=== PATIENT | male | born 1950 | race Caucasian/White ===

== ENCOUNTER → 2018-10-14 | Day surgery (SDC) | payer MEDICARE ==
[2016-06-21 18:10] VITALS: BP 165/101
[~2018-10-14] MED LIST: ASPIRIN E.C. 8181 MG PO; GLUCOSAMINE PO; HCTZ 25MG25 MG PO; LEVOTHYROXINE PO; NORCO 325 MG-51 TA1 PO; ZOCOR40 M1 PO
== END ==
LOC: MSO 08:03
DX: Z12.11 Encounter for screening for malignant neoplasm of colon (principal); K57.30 Diverticulosis of large intestine without perforation or abscess without bleeding; I10 Essential (primary) hypertension; E11.9 Type 2 diabetes mellitus without complications; E78.5 Hyperlipidemia, unspecified; Z79.82 Long term (current) use of aspirin
CPT/HCPCS: 00812; J2704; J7030